=== PATIENT | male | born 1955 | race Caucasian/White ===

== ENCOUNTER 2017-06-06 14:01 | Emergency (ER) | payer OTHER ==
[~2017-06-06] VITALS: Ht 177.8 cm; Wt 87.7 kg
[2017-06-06 14:06] VITALS: BP 139/94; PULSE 78; RESP 18; TEMP 97.2; O2SAT 94
[2017-06-06] MEDS ORDERED: OMEP40CA2 PO (14:10)
[2017-06-06] MEDS ORDERED: VITATAB56 PO (14:10)
[2017-06-06] MEDS ORDERED: SIMV40TA PO (14:10)
[2017-06-06] MEDS ORDERED: ANTIDEPRESANT (14:10)
--- NOTE | 2017-06-06 14:51 | PD ---
HPI Chief Complaint: Foreign Body Time Seen by Provider: 14:28 Travel History International Travel<30 days: No Contact w/Intl Traveler<30days: No Traveled to known affect area: No History of Present Illness HPI The patient is a 61-year-old male who presents to the emergency department for foreign body of the right ear. Patient is currently visiting from [place], is going back to [place] on Monday. The patient wears hearing aids and states that the external component of the hearing aid displaced from the internal component. He states the internal component is stuck in the right ear. He was seen in urgent care and they were unable to remove it with alligator forceps. He denies any bleeding or significant pain associated with a foreign body. Symptoms are mild, no current alleviating factors. PFSH Past Medical History Narrative Medical Hard of hearing, hyperlipidemia Social History Tobacco Use: No Allergies-Medications (Allergen,Severity, Reaction): Coded Allergies: No Known Allergies (Verified Allergy, Unknown, 06/06/17) Reported Meds & Prescriptions Reported Meds & Active Scripts Active Reported [Antidepresant] Vitamin D-400 (Cholecalciferol) 400 Unit Tab 400 Units PO DAILY Omeprazole 40 Mg Cap 40 Mg PO DAILY Simvastatin 40 Mg Tab 40 Mg PO HS Review of Systems Except as stated in HPI: all other systems reviewed are Neg HENT: Positive: Other (As noted in history of present illness) Skin: No Other Neurologic: No: Dizziness, Headache Physical Exam Narrative GENERAL: Awake, alert, nontoxic-appearing 61-year-old male who appears his stated age and is in no acute respiratory distress. SKIN: Focused skin assessment warm/dry. HEAD: Atraumatic. Normocephalic. EYES: Pupils equal and round. No scleral icterus. No injection or drainage. ENT: No nasal bleeding or discharge. Left EAC is clear. Right tympanic membrane is unable to be visualized. Right EAC has an umbrella shaped rubber piece with an ear canal with no visible bleeding. Unable to visualize the tympanic membrane. NECK: Trachea midline. No JVD. MUSCULOSKELETAL: No obvious deformities. No clubbing. No cyanosis. No edema. NEUROLOGICAL: Awake and alert. No obvious cranial nerve deficits. Motor grossly within normal limits. Normal speech. PSYCHIATRIC: Appropriate mood and affect; insight and judgment normal. Data Data Last Documented VS Vital Signs Date Time Temp Pulse Resp B/P (MAP) Pulse Ox O2 Delivery O2 Flow Rate FiO2 06/06/17 14:06 97.2 78 18 139/94 (109) 94 Orders Orders Ed Discharge Order (06/06/17 15:29) MDM Medical Decision Making Medical Screen Exam Complete: Yes Emergency Medical Condition: Yes Medical Record Reviewed: Yes Differential Diagnosis Differential diagnosis includes foreign body, ruptured tympanic membrane, otitis externa, otitis media, serous otitis. Narrative Course We attempted to remove the foreign body with absence of alligator forceps, however, were unable to remove the foreign body. Therefore, the right ear was irrigated and we attempted to obtain a suction device from same-day surgery. After irrigation the ear was reinspected, I was then able under direct visualization using an otoscope, with alligator forceps, I was able to remove the foreign body. Reevaluation reveals no tympanic perforation or drainage. No bleeding. The patient is advised to follow-up with his primary physician. Diagnosis Primary Impression: Foreign body in right ear, initial encounter Patient Instructions: General Instructions Additional Instructions: Follow-up with your primary physician. Return if symptoms worsen or progress. Med/Other Pt SpecificInfo: No Change to Meds Disposition: 01 DISCHARGE HOME Condition: Stable Sravan العلي MD Jun 06, 2017 14:51
== END 2017-06-06 15:41 | disposition home or self-care (01) ==
LOC: PHEFT 14:01
DX: S00.451A Superficial foreign body of right ear, initial encounter (principal); T16.1XXA Foreign body in right ear, initial encounter; E78.5 Hyperlipidemia, unspecified; Z97.4 Presence of external hearing-aid
CPT/HCPCS: 69200